=== PATIENT | male | born 2000 | race Caucasian/White ===

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

== ENCOUNTER → 2019-01-06 17:57 | Outpatient (CLI) | payer OTHER, SELFPAY ==
[2019-01-06 21:20] LABS: Chlamydia Trachomatis by PCR Negative (Negative); Neisserai gonorrhoeae by PCR Negative (Negative); Probe Check PASS; Sample Adequacy Control PASS; Specimen Processing Control PASS
== END ==
PROVIDERS: Family Provider Family Medicine; PCP Family Medicine; Referring Provider Family Medicine; Visit Provider Family Medicine
DX: Z71.1 Person with feared health complaint in whom no diagnosis is made (principal)
CPT/HCPCS: 87491; 87591

== ENCOUNTER 2019-02-10 19:21 | Emergency (ER) | payer OTHER, SELFPAY ==
[2019-02-10] VITALS (9 sets, daily range): BP systolic 115–141; BP diastolic 66–89; PULSE 63–77; RESP 4–18; TEMP 36.8; O2SAT 100; BMI 23.1
--- NOTE | 2019-02-10 19:30 | RAD_ITS ---
STUDY: X-RAY - RIGHT ANKLE REASON FOR EXAM: Male, 18 years old. Trauma TECHNIQUE: 2 view(s) of the ankle. COMPARISON: None. FINDINGS: There is complete dislocation of the tibiotalar joint with 4.7 cm of lateral talar displacement. There is an oblique fracture of the distal fibula with prominent angulation. There is no radiopaque foreign body. RAD/Ankle 2 Views IMPRESSION: Complete dislocation of the tibiotalar joint as described above as well as oblique fracture of the distal fibula. Injury pattern with association of ligamentous damage. Follow-up MRI suggested. Electronically Signed: Oscar Castillo, at 19:47 EDT Tel , Service support ,
[2019-02-10] MEDS: Propofol 200 MG/20 ML Vial 60 MG IV BOLUS (19:36)
--- NOTE | 2019-02-10 19:45 | RAD_ITS ---
STUDY: X-RAY - RIGHT ANKLE REASON FOR EXAM: Male, 18 years old. Post reduction TECHNIQUE: 3 view(s) of the ankle. COMPARISON: X-ray ankle earlier the same day FINDINGS: There has been interval reduction of ankle dislocation, now in normal alignment. Distal fibular fracture alignment is markedly improved. Soft tissues are unremarkable in appearance with mild swelling over the medial malleolus.. No new fractures are evident.. RAD/Ankle min 3 Views IMPRESSION: Interval reduction of ankle dislocation and fibular fracture with normal alignment. Electronically Signed: Oscar Castillo, at 20:08 EDT Tel , Service support ,
--- NOTE | 2019-02-10 20:34 | ED.VISSUMM ---
- ER Visit Summary Date of Service: 02/10/19 Chief Complaint: Right ankle injury History of Present Illness: The patient is a 18 M with a right ankle injury. The patient was sliding into first base. Brought in by EMS for a deformity to his right ankle. Physical Examination: Right ankle shows an obvious deformity. Skin is intact. Good pulses and sensation. No other pertinent findings. Test Results: X-ray showed a tibiotalar dislocation with an oblique fracture through the distal fibula. Emergency Department Course and Treatment: Patient was consented for sedation. Sedated with IV propofol. Patient was monitored and had no complications. Close reduction was performed. Normal anatomic alignment was noted. Good pulses. Skin intact. Patient was placed in an Ortho-Glass splint??posterior and sugar tong. Patient tolerated this well. On reevaluation, patient is neurovascularly intact. Will treat with Percocet, rest, ice, elevation. Crutches and nonweightbearing. Patient was discussed with Dr. Pulido and he advised following up in the office. Treatment Plan: As above Disposition: Discharge Impression: 1. Closed fracture dislocation right ankle This note was generated with [employer] dictation software. It may contain incorrect words, spelling, and punctuation that were not noted in review of the chart prior to signing ED Disposition - Plan for ED Patient: Referrals: Joshua Martinez MD [Primary Care Provider] -
--- NOTE | 2019-02-10 20:37 | ED.DEP ---
ED Disposition - Plan for ED Patient: Instructions: ED Dislocated Ankle Prescriptions: Oxycodone HCl/Acetaminophen [Percocet 5/325] 1 tab PO Q6H PRN PRN 5 Days #18 tab PRN Reason: Pain Referrals: Clyde Pulido DO [STAFF PHYSICIAN] -
[2019-02-10] MEDS: HYDROcodone Bitartrate/Apap 5/325 Tablet PO (21:00)
== END 2019-02-10 21:06 | disposition home or self-care (01) ==
PROVIDERS: Emergency Provider Emergency Medicine; Family Provider Family Medicine; PCP Family Medicine
DX: S82.831A Other fracture of upper and lower end of right fibula, initial encounter for closed fracture (principal); W01.0XXA Fall on same level from slipping, tripping and stumbling without subsequent striking against object, initial encounter; Y93.64 Activity, baseball; Y92.320 Baseball field as the place of occurrence of the external cause; Y99.8 Other external cause status
CPT/HCPCS: 27788; 73600; 73610; 99285; A4216

== ENCOUNTER → 2019-10-17 17:56 | Outpatient (CLI) | payer OTHER, SELFPAY ==
[2019-02-10 19:23] VITALS: BMI 23.1
[2019-10-17 20:05] LABS: Chlamydia Trachomatis by PCR Negative (Negative); Neisserai gonorrhoeae by PCR Negative (Negative); Probe Check PASS; Sample Adequacy Control PASS; Specimen Processing Control PASS
== END ==
PROVIDERS: PCP Family Medicine; Referring Provider Family Medicine; Visit Provider Family Medicine
DX: R30.0 Dysuria (principal)
CPT/HCPCS: 87086; 87491; 87591

== ENCOUNTER → 2019-11-13 16:47 | Outpatient (CLI) | payer OTHER, SELFPAY ==
[2019-02-10 19:23] VITALS: BMI 23.1
[2019-11-13 19:00] LABS: HIV - WCH Non-Reactive (Nonreactive)
[2019-11-16 03:26] LABS: Rapid Plasmin Reagin (RPR) NONREACTIVE (NONREACTIVE)
[2019-11-17 09:07] LABS: HEPATITIS B SURFACE AG Negative (Negative); Hepatitis A AB, Total Negative (Negative); Hepatitis A IgM Antibody Negative (Negative); Hepatitis B Core AB IgM Negative (Negative); Hepatitis B Core Ab Total Negative (Negative); Hepatitis C Ab <0.1 s/co ratio (0.0-0.9)
[2019-11-17 11:57] LABS: H. PYLORI STOOL AG Negative (Negative); Hep B Surface Antibodies Non Reactive (.)
== END ==
PROVIDERS: PCP Family Medicine; Referring Provider Family Medicine; Visit Provider Family Medicine
DX: R30.0 Dysuria (principal); K21.9 Gastro-esophageal reflux disease without esophagitis
CPT/HCPCS: 36415; 86592; 86703; 86704; 86705; 86706; 86708; 86709; 86803; 87340

== ENCOUNTER → 2020-07-01 12:37 | Outpatient (CLI) | payer OTHER, SELFPAY ==
[2019-02-10 19:23] VITALS: BMI 23.1
[2020-07-01 13:25] LABS: Absolute Lymphocyte Count 1.34 X10^3/uL (0.83-4.51); Absolute Neutrophil Count 2.2 X10^3/uL (2.0-7.7); Basophil# 0.02 X10^3/uL; Basophil% 0.5 % (0-1); Eosinophil# 0.37 X10^3/uL; Eosinophils% 8.5 % (0-5); Hematocrit 39.4 % (40-54); Lymphocyte # 1.34 X10^3/ul (4.0); Lymphocyte % 30.7 % (19-41); Mean Corp Hgb Conc 35.5 g/dL (32-36); Mean Corpuscular Hgb 34.1 pg (27.0-32.0); Mean Corpuscular Volume 95.9 fL (80-94); Mean Platelet Vol. 10.1 fl (6.2-12.0); Monocyte# 0.44 X10^3/uL; Monocyte% 10.1 % (0-10); NRBC Flagged by Analyzer 0 % (0-5); Neutrophil # 2.19 X10^3/uL (2.7-7.7); Platelet Count 181 K/mm3 (150-450); RBC Distribution Width CV 11.5 % (11.6-14.6); RBC Distribution Width SD 38.8 fl (35.1-43.9); Red Blood Count 4.11 M/mm3 (4.6-6.2); White Blood Count 4.4 K/mm3 (4.4-11.0)
[2020-07-01 13:48] LABS: ALB/GLOB Ratio 1.2 RATIO (0.9-2.4); AST(SGOT) 21 U/L (15-37); Alanine Aminotransfer ALT/SGPT 25 U/L (16-61); Albumin, Serum 4.1 g/dL (3.2-5.0); Alkaline Phosphatase 84 U/L (45-117); Anion Gap 2 (5-15); BUN 18 mg/dL (7-18); BUN/Creat Ratio 17.1 RATIO (10-20); CRP < 2.90 mg/L (0.0-3.0); Chloride 107 mmol/L (98-107); Creatinine, Serum 1.05 mg/dL (0.70-1.30); EST Glomerular Filtration Rate 95 mL/min (>60); Est Glom Filt Rate - Afr Amer 115 mL/min (>60); Globulin 3.3 g/dL (2.2-4.2); Glucose 91 mg/dL (74-106); Potassium 3.8 mmol/L (3.5-5.1); Protein, Total 7.4 g/dL (6.4-8.2); Sodium Level 139 mmol/L (136-145)
== END ==
PROVIDERS: PCP Family Medicine; Referring Provider Family Medicine; Visit Provider Family Medicine
DX: R10.31 Right lower quadrant pain (principal)
CPT/HCPCS: 36415; 80053; 85025; 86140

== ENCOUNTER → 2020-07-01 13:06 | Outpatient (CLI) | payer OTHER, SELFPAY ==
[2019-02-10 19:23] VITALS: BMI 23.1
--- NOTE | 2020-07-01 13:16 | CT_ITS ---
STUDY: CT ABDOMEN AND PELVIS WITH CONTRAST REASON FOR EXAM: Male, 19 years old. RLQ PAIN TODAY RADIATION DOSAGE (If Supplied By Facility): CTDIvol = ( 9.1 ) mGy, DLP = ( 295.11 ) mGycm TECHNIQUE: Transaxial images were obtained from the dome of the diaphragm to the symphysis pubis with oral contrast. Oral and amp;amp; IV GASTROGRAFIN and amp;amp; 100ML ISOVUE 300 was administered. Sagittal and coronal images were reconstructed. Individualized dose optimization techniques were used for this CT. COMPARISON: None. FINDINGS: The visualized lung bases are unremarkable. The visualized portions of the heart are within normal limits. Normal liver. The gallbladder is contracted. Normal spleen. Normal pancreas. Normal bilateral adrenal glands. Normal right kidney. Normal left kidney. Normal visualized stomach. Normal small intestine. Normal colon. There is non-visualization of the appendix. Normal abdominal aorta. Normal inferior vena cava. Normal retroperitoneum. Normal urinary bladder. Normal abdominal wall. Normal osseous structures. CT/Abdomen/Pelvis WITH Contrast IMPRESSION: Normal enhanced CT of the abdomen and pelvis. Electronically Signed: Serge Layne MD at 16:10 EDT Tel , Service support ,
== END ==
PROVIDERS: PCP Family Medicine; Referring Provider Family Medicine; Visit Provider Family Medicine
DX: R10.31 Right lower quadrant pain (principal)
CPT/HCPCS: 74177; Q9967

== ENCOUNTER → 2020-10-31 17:30 | Outpatient (CLI) | payer OTHER, SELFPAY ==
[2019-02-10 19:23] VITALS: BMI 23.1
== END ==
PROVIDERS: PCP Family Medicine; Referring Provider Family Medicine; Visit Provider Family Medicine
DX: Z20.822 Contact with and (suspected) exposure to COVID-19 (principal)
CPT/HCPCS: 87635; U0005; U0003

== ENCOUNTER 2023-07-29 10:11 | Emergency (ER) | payer OTHER, SELFPAY ==
[2023-07-29 10:12] VITALS: BP 138/74; PULSE 98; RESP 16; TEMP 36.3; O2SAT 90; BMI 19.6
--- NOTE | 2023-07-29 10:32 | ED.VIS.BACK ---
HPI History of Present Illness Chief Complaint: Back Informant: patient Onset/Context/Timing Onset: Today Context: Sudden Onset Injury: lifting and bending Timing: Continuous Quality: Sharp Location: Thoracic Current Severity: Moderate Maximum Severity: Moderate Worsened by: improves with Movement, Bending and Lifting Relieved by: Remaining Still Associated Symptoms Associated Symptoms: Negative for Numbness, Tingling, Radiation to Right Leg, Radiation to Left Leg, Abdominal Pain, Dysuria, Unable to Ambulate, Unable to Transfer, Urinary Retention, Urinary Incontinence, Constipation or Fecal Incontinence Narrative Narrative: 22-year-old male was lifting a box about 45 pounds and felt pain in his lower back. No prior back history or surgery. He denies any pain radiating either leg. Denies any other complaints. Prior similar symptoms: Yes Recent Illness/Hospitalization: No PFSH PFSH Medical History no medical history no medical history Home Medications metaxalone 800 mg tablet 800 mg PO TID 7 days #21 tabs 07/29/23 [Rx Last Taken Unknown] Allergy/AdvReac Type Severity Reaction Status Date / Time No Known Allergies Allergy Verified 07/29/23 10:12 Social History Smoking Status: Never smoker ROS ROS ED ROS Narrative Denies recent illness. Review of Systems ROS Unobtainable: Denies due to encephalopathy Constitutional Constitutional ED: Denies chills or fever(s) Eyes Eyes: Denies blurry vision ENT ENT ED: Denies ear pain Cardiovascular Cardiovascular: Denies chest pain Respiratory/Chest Respiratory/Chest: Denies dyspnea or dyspnea on exertion Gastrointestinal Gastrointestinal: Denies abdominal pain Genitourinary Genitourinary ED: Denies dysuria or hematuria Musculoskeletal Musculoskeletal: Reports back pain; Denies arthralgias, myalgias or neck pain Integumentary Denies abscess or Abrasions Neurologic Neurologic: Denies headache(s) Psychiatric Psychiatric: Denies anxiety Endocrine Endocrinology: Denies cold intolerance Hematologic/Lymphatic Hematologic/Lymphatic: Denies easy bleeding or easy bruising Allergic/Immunologic Allergic/Immunologic ED: Denies mouth swelling EXAM Physical Exam Narrative Exam Narrative: Well-appearing 22-year-old male. Sitting upright in bed. Vital signs are stable afebrile. HEENT exam unremarkable. Neck nontender. Full range of motion. Lungs clear to auscultation. Heart regular rhythm no murmur. Chest wall and ribs nontender. Abdomen soft nontender. Moving all 4 extremities. Neurovascular intact. 5 out of 5 operations lieutenant strength. Dorsi plantarflexion intact. Able to lift either leg. No cauda equina. No saddle anesthesia. Normal medial thigh sensation. Back exam cervical and thoracic spine is normal is. Lumbar soft tissue is tender bilaterally consistent with lumbar strain. Muscle spasm. No bony tenderness. Neurologically is awake and alert with no focal motor or sensory deficits. Const Vital Signs: 07/29/23 10:12 Temperature 97.3 F L Temperature Source Temporal Pulse Rate 98 Respiratory Rate 16 Blood Pressure 138/74 H Blood Pressure Mean 95 Pulse Ox 90 Oxygen Delivery Method Room Air Positive well nourished and well developed; Negative for obese, cachectic, contractures or unkempt General Appearance ED: well developed and NAD; Negative for unkempt, cachectic, contractures or pallor Nutritional Appearance: Negative for cachectic or obese HEENT Reports moist mucous membranes Negative for trauma or tenderness Eyes PERRL and EOMs intact bilaterally Neck no lymphadenopathy, supple and no JVD General: Negative for tenderness Thyroid: Negative for other Chest Wall Chest: Negative for other Resp normal respiratory effort and clear to auscultation bilaterally Effort and Inspection: Negative for pain with movement Auscultation: Negative for rales, rhonchi or wheezes Cardio regular rate, regular rhythm, S1 normal heart sound, S2 normal heart sound and no murmurs Palpation: Negative for palpable S3 Rate: Negative for bradycardia or tachycardic Rhythm: Negative for abnormal rhythm Bruits: Negative for other GI normal to inspection, nondistended, normoactive bowel sounds, soft to palpation, non-tender, non-distended and no masses Inspection: Negative for abdominal distention Palpation: Negative for tender or guarding Back/Spine Negative for normal to inspection or no thoracic nor lumbar tenderness Back/Spine Narrative: Bilateral soft tissue tenderness along the lumbar spine consistent with a lumbar muscle strain and spasm. General Back: Negative for CVA tenderness Cervical Spine: cervical spine tenderness and Negative for paracervical muscle tenderness Thoracic Spine / Upper Back: paraspinal muscle tenderness Lumbar Spine / Lower Back: straight leg raise negative bilaterally; Negative for ROM limited Extremity normal to inspection General Extremety ED: Negative for edema or tenderness General Extremity: Negative for edema Neuro oriented x3 and no sensory deficits noted Sensorium / Orientation: alert; Negative for confused, lethargic or stuporous Motor Exam: strength 5/5 throughout Psych mental status grossly normal Appearance: Negative for unkempt Attitude: No agitated Mood & Affect: Negative for depressed, sad or tearful Skin no rashes or lesions noted and no wounds General Skin Exam: Negative for jaundice or pallor Lesions: No lesion noted Rashes: No rashes noted Trauma: Negative for abrasion Wounds: Negative for wounds noted MDM MDM MDM Narrative Medical decision making narrative: 2-year-old male with lumbar strain and spasm from lifting. He will be placed on Skelaxin. Motrin. Hot shower, whirlpool and massage. Follow-up as needed. At this time he does not need any imaging there was no fall or other trauma. He does not need an MRI. History & Record Review Discussion w/independent historian: Patient Discharge Plan Triage Chief Complaint: Back ED Provider: Jozef Flood Dx/Rx/DC Orders Clinical Impression: Back muscle spasm, Back pain, Acute lumbar myofascial strain Prescriptions: New metaxalone 800 mg tablet 800 mg PO TID 7 Days Qty: 21 0RF Primary Care Provider: Lonnie Freeman Referrals: Lonnie Freeman MD [Primary Care Provider] - 1 Week if not improving Activity Restrictions/Additional Instructions: You strained the muscles in your lower back. You are also having muscle spasms from that. Hot shower, warm bath and massage. Whirlpool tub. Motrin for pain and inflammation. Skelaxin the muscle relaxant 3 times a day. Follow-up with your doctor if not improving. Return if a lot worse. Disposition Disposition: Home, Self Care
[2023-07-29] MEDS: Ibuprofen 400 MG Tablet 800 MG PO (11:06)
[2023-07-29] MEDS: Metaxalone 800 MG Tablet PO (11:07)
== END 2023-07-29 11:11 | disposition home or self-care (01) ==
PROVIDERS: Emergency Provider Emergency Medicine; PCP Family Medicine; Visit Provider Emergency Medicine
DX: S39.012A Strain of muscle, fascia and tendon of lower back, initial encounter (principal); M62.830 Muscle spasm of back; M54.9 Dorsalgia, unspecified; X50.0XXA Overexertion from strenuous movement or load, initial encounter
CPT/HCPCS: 99282